=== PATIENT | female | born 1995 | race Hispanic/Latino ===

== ENCOUNTER 2019-10-25 12:33 | Outpatient (CLI) | payer OTHER, SELFPAY ==
[2019-10-25 13:22] LABS: Beta HCG Quantitative < 2.39 mIU/ML
== END 2019-10-25 12:34 | disposition home or self-care (01) ==
PROVIDERS: PCP Family Medicine; Visit Provider Student in an Organized Health Care Education/Training Program
DX: Z30.430 Encounter for insertion of intrauterine contraceptive device (principal)
CPT/HCPCS: 36415; 84702